=== PATIENT | male | born 1960 | race Caucasian/White ===

== ENCOUNTER 2023-10-22 08:24 | Observation (INO) ==
--- NOTE | 2023-10-07 12:51 | Anesthesiology Consultation ---
Date of Service October 07, 2023 Assessment & Plan (1) Encounter for pre-operative examination: - Per geophysical prospecting surveyor on 10/07/23: No known infectious disease contacts, current infectious disease symptoms in past 10 days or COVID positive test result in the past 30 days. Chart Review Chart Review: Acceptable Risk for Surgery and Patient NOT seen in Pre Admission Testing History Surgery Operation Date: 10/22/23 08:50 Proposed Procedures p Right Total Hip Arthroplasty - Joe Valdez MD Height/Weight Height: 6 ft Weight: 87.997 kg Allergies Allergy/AdvReac Type Severity Reaction Status Date / Time No Known Allergies Allergy Verified 10/07/23 12:03 Medications Home Medications Medication Instructions Recorded Confirmed Last Taken naproxen sodium 220 mg tablet 660 - 880 mg PO QAM PRN Pain 08/16/23 10/07/23 08/28/23 08:00 (Aleve) Wheeled Walker #1 ea 08/20/23 Unknown acetaminophen 500 mg tablet 1,000 mg (2 x 500 mg) PO TID pain 08/27/23 10/07/23 Unknown (Tylenol Extra Strength) 30 days #180 tabs aspirin 81 mg tablet,delayed 81 mg PO BID 45 days #90 tabs 08/27/23 10/07/23 Unknown release (Maritza Low Dose Aspirin) ketorolac 10 mg tablet 10 mg PO Q6 pain 5 days #20 tabs 08/27/23 10/07/23 Unknown ondansetron 4 mg disintegrating 4 mg PO Q8 PRN nausea #20 tabs 08/27/23 10/07/23 Unknown tablet sennosides 8.6 mg tablet (Senokot) 8.6 mg PO BID prevent constipation 08/27/23 10/07/23 Unknown 14 days #28 tabs tamsulosin 0.4 mg capsule (Flomax) 0.4 mg PO DAILY #7 caps 08/27/23 10/07/23 08/28/23 20:00 tramadol 50 mg tablet 50 - 100 mg (1 - 2 x 50 mg) PO Q8H 08/27/23 10/07/23 Unknown PRN pain #40 tabs Wheeled Walker #1 ea 10/07/23 Unknown lisinopril 10 mg tablet 10 mg PO QAM 10/07/23 10/07/23 Unknown Past Medical History Medical History History of COVID-19 spring 2022, home test, not hosp; mild symptoms>resolved Hypertension Lumbar spondylosis Past Surgical History Surgical History History of open reduction and internal fixation (ORIF) procedure right collar bone-hardware placed, then removed 15 years later right wrist-pinning History of total hip arthroplasty left Hx of appendectomy Hx of melanoma excision left back of shoulder S/P hardware removal right collar bone Social History Smoking Status: Former smoker Do You Dip or Chew Tobacco: Yes (advised npo) Smoking End Date: 30 yrs ago Hx Alcohol Use: Yes Alcohol type: beer alcohol intake frequency: 3 or more drinks per day Hx Substance Use: No substance use type: does not use Lab Results Anesthesia Preop Results Results Anesthesia Widget: WBC 17.06 K/ul (4.8-10.8) H 08/30/23 Hgb 11.4 g/dl (14.0-18.0) L 08/30/23 Hct 32.4 % (42.0-52.0) L 08/30/23 Plt 273 K/uL (130-400) 08/30/23 Na 140 mmol/L (136-145) 09/30/23 K 4.1 mmol/L (3.5-5.1) 09/30/23 Cl 105 mmol/L (98-107) 09/30/23 CO2 29 mmol/L (21-32) 09/30/23 BUN 15 mg/dl (6-23) 09/30/23 Creat 0.86 mg/dl (0.6-1.4) 09/30/23 Glucose Level 94 mg/dl (70-99(Fasting)) 09/30/23 PT 10.4 Seconds (9.0-12.0) 09/30/23 PTT 27 Seconds (21-31) 09/30/23 INR 1.0 (0.9-1.1) 09/30/23 Blood Type O Positive 09/30/23 Antibody Screen NEGATIVE 09/30/23 Testing Laboratory Results Labs obtained during hospitalization for left TKA. Electrocardiogram Date: 08/20/23 NSR, rate 61 bpm Chest X-Ray Date: 08/20/23 No acute process.
[~2023-10-22 08:24] MED LIST: MIDAZOLAM HCL 1 MG/ML 2ML VIAL ONE; ROPIVACAINE 0.5% 5 MG/ML 30 ML VIAL ONE; fentaNYL citrate PF 100 MCG/2 ML VIAL ONE
--- NOTE | 2023-10-22 08:36 | History & Physical Bridge Note ---
Date of Service October 22, 2023 History & Physical Bridge Note I have examined the patient, reviewed the History & Physical and in the interval since the performance of the History & Physical I have noted the following changes of clinical significance: no changes noted
[2023-10-22] MEDS: METOCLOPRAMIDE HCL 10 MG TABLET PO SCH (08:56)
[2023-10-22] MEDS: FAMOTIDINE 20 MG TAB PO SCH (08:56)
[2023-10-22] MEDS: ACETAMINOPHEN 500 MG TAB PO SCH ×2 (08:56→16:50)
[2023-10-22] MEDS: CeleBREX 200 MG CAP PO SCH (08:57)
[2023-10-22] MEDS: LR 60ML/HR IV SCH (08:57)
[2023-10-22] MEDS: Scopolamine 1 MG TDSY TD SCH (09:05)
[2023-10-22] MEDS: dexAMETHasone**PF** 10 MG/ML VIAL IV SCH (09:06)
[2023-10-22] MEDS: LR 500ML BOLUS, THEN 15ML/HR IV SCH (09:07)
[2023-10-22] MEDS ORDERED: MoRPHine SULFATE PF 1 MG/ML 10 ML AMP/VIAL ONE (09:45)
[2023-10-22] MEDS ORDERED: BUPIVACAINE 0.5 % 5 MG/1 ML PF 10ML VIAL ONE (09:46)
[2023-10-22] MEDS: TRANEXAMIC ACID 1,000 MG **IV Pre-op IV SCH (09:47)
[2023-10-22] MEDS: ceFAZolin 2000MG 2,000 MG/15 ML SYR IV SCH ×2 (10:08→17:20)
[2023-10-22] MEDS: BUPIVACAINE/EPINEPHRINE 0.5% MPF 1:200,000 30 ML VIAL ONE (10:35)
[2023-10-22] MEDS ORDERED: ePHEDrine sulfate 50 MG/5 ML SYR ONE (10:46)
[2023-10-22] MEDS ORDERED: PHENYLEPHRINE 100MCG/ML 10ML SYR IV ONE (10:46)
[2023-10-22] MEDS ORDERED: LIDOCAINE 2% 2 ML VIAL/AMP(20MG/ML) INFIL ONE (10:46)
[2023-10-22] MEDS ORDERED: PROPOFOL IV EMULSION 10 MG/ML 20 ML VIAL IV ONE (10:46)
[2023-10-22] MEDS ORDERED: PHENYLEPHRINE HCL 10 MG/ML VIAL ONE (11:15)
--- NOTE | 2023-10-22 11:29 | Operative Report ---
PG Post Operative Report Pre & Post Diagnosis Operation Date: 10/22/23 10:40 Pre-Op Diagnosis: Right Hip Advanced Degenerative Joint Disease Post-Op Diagnosis: Right Hip Advanced Degenerative Joint Disease I identified the patient and participated in the time-out.: Yes Procedure Operation Date: 10/22/23 10:40 Actual Procedures p Right Total Hip Arthroplasty--Uncemented(Right) - Joe Valdez MD Surgeon Joe Valdez MD Economics Department Chair Lucio Boston PA-C Estimated Blood Loss 150 Findings Consistent with Post-Op Diagnosis Operative findings reveal advanced right hip DJD. He extensive grade 4 [id number] disease of the femoral head and acetabulum. He had large osteophytes around his femoral head, femoral neck, and acetabulum. Very stiff hip preoperatively. Specimens Right femoral head sent for pathology. Anesthesia Type Spinal MAC Complications none Disposition Accompanied Patient To Recovery: No Indications Patient is a 62-year-old gentleman is had a several year history of bilateral increasing pain discomfort stiffness consequently worse over the past 5 years to the point where he could not work. X-rays show advanced hip arthritis. Failed all conservative measures. He had his left hip replaced about 7 weeks ago and is done remarkably well from this. He elected with right total hip arthroplasty. Description of Procedure Operative implants consist of: 1 Biomet G7 size 56 mm acetabular shell. 2. [place] hole gear inspector. 3. 6.5 cancellous acetabular screws 135 mm length and 125 mm length. 4. Highly cross-linked polyethylene liner with a 56 mm outer diameter, 36 mm inner diam with a ibarra placed inferior and posterior. 5. DePuy Corail size 11 KLA femoral stem. 6. +8.5/36 mm ceramic articular ball. The patient was taken the operating, identified, placed on the operating table in the supine position. All contact areas were appropriately padded. IV antibiotics were provided by the anesthesia team. A spinal anesthetic and been implemented holding area. The patient was then placed in the left lateral decubitus position. An axillary roll was placed. Stulberg hip positioner was used for positioning. The right hip and leg were then prepped and draped in usual sterile fashion. A posterolateral approach to the right hip was then performed to a curvilinear incision centered over the greater trochanter. Sharp dissection Through subcutaneous tissue down to the IT band gluteal fascia. The IT band gluteal fascia incised longitudinally in line with skin incision. The underlying greater bursa was excised. The piriformis and external rotators along with the posterior hip joint capsule were then released from the posterior aspect the hip as a single layer. Great care was taken throughout the procedure protect the sciatic nerve at all times. The hip was then internally rotated and dislocated. A femoral neck osteotomy cut was made with Final Cut about 10 mm above the lesser trochanter. Femoral head was removed and sent for pathology. The femur was retracted anteriorly. Attention drawn the acetabulum. The acetabular labrum was excised. The pulmonary fat was excised. Sequential reaming the acetabular was then performed again with size 43 and progressing up to 55. I reamed a little bit with a 56 reamer. A 56 mm Biomet G7 acetabular shell was then placed in about 40 degrees lateral opening and about 20 degrees of anteversion. It was fixed with two 6.5 cancellous screws. An anterior osteophyte was removed. A trial liner was placed. Attention drawn the femur. The proximal femur was then with a OmniGuide cutter followed by canal finder. I then broached beginning with size 8 and progressed up to 11. Excellent fit 11. This was 1 size larger than we have placed on the opposite side. Then trialed the hip. The neck cut was little bit lower and therefore we elected to use a slightly longer neck/head fragment. We used a +8.5. We did elect to place a ibarra inferior and posterior. The hip was stable to the full extension and external rotation and flexion to 90 degrees internal Tatian about 50 degrees. These implants were placed. All trial implants were removed. An apex hole gear inspector was placed. Highly cross-linked polyethylene liner with a ibarra placed inferior and posterior was then placed. A size 11 KLA femoral stem was impacted in position. I then placed a 8.5/36 mm ceramic articular ball. Once again, I used a longer neck due to the lower neck cut. Hip was located and once again found to be stable. Attention drawn toward closing. The wound was irrigated with pulsatile lavage solution. I did inject locally with 60 cc of half percent Marcaine with epinephrine. The posterior capsule and external rotators were then repaired through drill holes in the posterior trochanter with #2 Tycron suture. The IT band gluteal fascia then closed with #1 PDS suture in running fashion through subcutaneous tissue then closed with 2 layers of the deep layer #1 Vicryl suture in the subcutaneous tissues with 2-0 Dexon suture in a buried interrupted fashion. Skin was closed with skin elisabet. Leg was then cleaned and dried and a sterile dressing with Xeroform, 4 fours, ABD pad and foam tape was applied. The patient then transferred to the recovery room in stable condition. The patient tolerated the procedure well and there were no complications. Lucio Boston, my physician executive assistant to general counsel, was present for the entire procedure. His assistance was essential and required for appropriate patient positioning, prepping and draping, surgical exposure, performing the technical details of the operation, placement the implants, closure of the wound, and placement of the sterile bandage. I attest to the content of the Intraoperative Record and any orders documented therein. Any exceptions are noted below.
--- NOTE | 2023-10-22 12:43 | XRay Report ---
XR hip 1V RT w pelvis CLINICAL HISTORY: IN PACU - Post Surgical TECHNIQUE: 1 view of the right hip and single frontal view of the pelvis were obtained. Comparison: Comparison is made to hip radiographs 08/29/2023 FINDINGS: Patient is status post total hip arthroplasty with expected postsurgical changes including soft tissu e swelling and subcutaneous emphysema. Left hip arthroplasty is unchanged. IMPRESSION: Expected postoperative appearance status post placement of total hip arthroplasty. ACT 112: Negative or not required by law. Electronically signed by: Salomón Dickerson M.D. 10/22/2023 12:41 PM
[2023-10-22] MEDS ORDERED: MAGNESIUM HYDROXIDE SUSP 30 ML UDC PO PRN (13:24)
[2023-10-22] MEDS ORDERED: HYDROmorphone INJ 0.5 MG/0.5 ML SYR IV PRN (13:24)
[2023-10-22] MEDS ORDERED: traMADol HCL 50 MG TABLET PO PRN ×2 (13:24)
[2023-10-22] MEDS ORDERED: ALUMINUM/MAGNESIUM SUSP 30 ML UDC PO PRN (13:24)
[2023-10-22] MEDS ORDERED: diphenhydrAMINE Capsule 25 MG CAP PO PRN (13:24)
[2023-10-22] MEDS ORDERED: bisacodyL 10 MG SUPP PR PRN (13:24)
[2023-10-22] MEDS ORDERED: METOCLOPRAMIDE HCL INJ 5 MG/ML 2 ML VIAL IV PRN (13:24)
[2023-10-22] MEDS ORDERED: ONDANSETRON INJ 2 MG/ML 2 ML VIAL IV PRN (13:24)
--- NOTE | 2023-10-22 13:26 | Anesthesiology Progress Note ---
Date of Service October 22, 2023 Anesthesia Post Procedure Vital Signs Vital Signs: Temp Pulse Pulse Resp BP Pulse Ox O2 Del Method 10/22/23 12:55 60 15 102/62 99 Nasal Cannula 10/22/23 12:45 57 L 15 102/61 99 Nasal Cannula 10/22/23 12:35 59 L 16 105/57 L 99 Nasal Cannula 10/22/23 12:25 36.5 C 59 L 17 102/56 L 99 Nasal Cannula 10/22/23 12:15 62 20 104/59 L 98 Nasal Cannula 10/22/23 12:05 66 16 109/63 97 Room Air 10/22/23 11:55 64 17 107/58 L 99 Room Air 10/22/23 11:45 73 18 107/58 L 99 Room Air 10/22/23 11:35 76 15 107/56 L 99 Oxymask 10/22/23 11:25 36.0 C L 75 17 114/57 L 100 Oxymask 10/22/23 08:46 36.7 C 76 20 134/93 96 Room Air O2 Flow Rate 10/22/23 12:55 2 10/22/23 12:45 2 10/22/23 12:35 2 10/22/23 12:25 2 10/22/23 12:15 2 10/22/23 12:05 10/22/23 11:55 10/22/23 11:45 10/22/23 11:35 5 10/22/23 11:25 10 10/22/23 08:46 Transfer of Care Handoff Completed per policy Notes Mental Status: alert / awake / arousable Patient Amnestic to Procedure: Yes Nausea / Vomiting: adequately controlled Pain: adequately controlled Airway Patency, RR, SpO2: stable & adequate BP & HR: stable & adequate Hydration State: stable & adequate Neuraxial Anesthesia: was administered and sensory block is resolving Anesthetic Complications: no major complications apparent
[2023-10-22] MEDS ORDERED: ePHEDrine sulfate 50 MG/ML AMP IV PRN (13:43)
[2023-10-22] MEDS ORDERED: NALOXONE HCL 0.08 MG in SYRINGE 1.8 ML IV PRN (13:43)
[2023-10-22] MEDS ORDERED: NALOXONE HCL 0.4 MG/1 ML VIAL/CARP IV PRN (13:43)
[2023-10-22] MEDS ORDERED: PROMETHAZINE HCL 6.25 MG in SODIUM CHLORIDE 0.9% 50 ML IV PRN (13:43)
[2023-10-22] MEDS ORDERED: MoRPHine SULFATE 2 MG/ML CARP IV PRN (13:43)
[2023-10-22] MEDS ORDERED: NALOXONE HCL 1 MG in SODIUM CHLORIDE 0.9% 1,000 ML IV PRN (13:43)
[2023-10-22] MEDS ORDERED: LACTATED RINGER'S 500 ML IV PRN (13:43)
[2023-10-22] MEDS ORDERED: KETOROLAC 30 MG/ML VIAL IV PRN (13:43)
[2023-10-22] MEDS ORDERED: DC INTRASPINAL MORPHINE SCH (13:45)
[2023-10-22] MEDS ORDERED: NO NARCOTICS OR SEDATIVES SCH (13:45)
[2023-10-22] MEDS ORDERED: ACETAMINOPHEN 500 MG TAB PO SCH (14:00)
[2023-10-22] MEDS: SODIUM CHLORIDE 0.9% 1,000 ML IV SCH ×2 (14:18→16:30)
[2023-10-22] MEDS: ONDANSETRON INJ 2 MG/ML 2 ML VIAL IV PRN (14:39)
[2023-10-22] MEDS: diphenhydrAMINE 50 MG/ML VIAL IV PRN (14:45)
[2023-10-22] MEDS: NALOXONE HCL 0.4 MG/1 ML VIAL/CARP IV PRN (14:52)
[2023-10-22] MEDS: NALBUPHINE HCL 5 MG in SYRINGE 0 ML IV PRN (15:46)
--- NOTE | 2023-10-22 15:49 | Communication Note ---
Date of Service: October 22, 2023 Alerted by nursing of patient requiring narcan d/t diaphoresis post intrathecal morphine from surgery early today. Assessed patient at bedside with nursing. Patient appears calm and comfortable. Patient states he feels much better now and immediately after 2nd dose of narcan. States he suddenly felt extremely itchy/nauseous and sweaty with some vertigo. EKG obtained shows NSR first degree AV block. Given history, suspect vagal response to nausea contributing to lower HR. BP, O2 saturation stable throughout. Patient denying any CP/SOB. Instructed patient this is potential side effect with 2nd peak effect of spinal morphine. Continue continuous pulse oximeter monitoring and PRN narcan for significant opioid side effects.
[2023-10-22] MEDS: Scopolamine CHECK PATCH PLACEMENT SCH (15:52)
--- NOTE | 2023-10-22 16:03 | Hospitalist Consultation ---
Date of Consultation October 22, 2023 Assessment & Plan (1) Status post left hip replacement: Status post right total hip arthroplasty 10/22/[address] Valdez (2) Bradycardia: Postoperative symptomatic bradycardia with sustained blood pressure. nursing states that he was stable when he returned from PACU but then developed some bradycardia nausea diaphoresis and pruritus. The pruritus seems to be at the level of his spinal anesthesia. Patient did receive 3 doses of 0.1 mg of Narcan with improvement of his mental state and heart rate. Patient had some pruritus as mentioned which could be his anesthesia wearing off could have created pain sensation with created a vagal sensation resulting in the bradycardia. However there have been reports of morphine causing bradycardia in the literature. At this time the patient seems stable his heart rates in the 60s his blood pressure was sustained his examination was nonfocal will have the patient remain on the medical floor with close monitoring and if this were to occur or if he were to regress will transfer to PCU but will remain on the medical floor at this time. Checking serology at this time. Likely medication related or vagal related effect (3) Hypertension: Holding lisinopril postoperatively Plan Patient ordered tamsulosin for BPH will continue as patient's blood pressure prohibits at Surgery was chosen twice daily aspirin for DVT prevention History of Present Illness Attending Physician: Joe Valdez MD History of Present Illness Patient presents after total right hip arthroplasty. Patient underwent left hip arthroplasty in August 2023 Postoperatively patient developed sinus bradycardia. He did have some diaphoresis. He did have a spinal during his procedure. He typically does not take any beta-marni therapy., EKG revealed sinus bradycardia with first-degree AV block. Blood pressure revealed 121/70 Allergies Allergy/AdvReac Type Severity Reaction Status Date / Time No Known Allergies Allergy Verified 10/22/23 08:51 Home Medications Medication Instructions Recorded Confirmed Type naproxen sodium 220 mg tablet 660 - 880 mg PO QAM PRN Pain 08/16/23 10/22/23 History (Jane) Wheeled Walker #1 ea 08/20/23 Rx acetaminophen 500 mg tablet 1,000 mg (2 x 500 mg) PO TID pain 08/27/23 10/22/23 Rx (Tylenol Extra Strength) 30 days #180 tabs aspirin 81 mg tablet,delayed 81 mg PO BID 45 days #90 tabs 08/27/23 10/22/23 Rx release (Maritza Low Dose Aspirin) ketorolac 10 mg tablet 10 mg PO Q6 pain 5 days #20 tabs 08/27/23 10/22/23 Rx ondansetron 4 mg disintegrating 4 mg PO Q8 PRN nausea #20 tabs 08/27/23 10/22/23 Rx tablet sennosides 8.6 mg tablet (Senokot) 8.6 mg PO BID prevent constipation 08/27/23 10/22/23 Rx 14 days #28 tabs tamsulosin 0.4 mg capsule (Flomax) 0.4 mg PO DAILY #7 caps 08/27/23 10/22/23 Rx tramadol 50 mg tablet 50 - 100 mg (1 - 2 x 50 mg) PO Q8H 08/27/23 10/22/23 Rx PRN pain #40 tabs Wheeled Walker #1 ea 10/07/23 Rx lisinopril 10 mg tablet 10 mg PO QAM 10/07/23 10/22/23 History acetaminophen 500 mg tablet 1,000 mg (2 x 500 mg) PO TID pain 10/20/23 10/22/23 Rx (Tylenol Extra Strength) 30 days #180 tabs aspirin 81 mg tablet,delayed 81 mg PO BID 45 days #90 tabs 10/20/23 10/22/23 Rx release (Maritza Low Dose Aspirin) ketorolac 10 mg tablet 10 mg PO Q6 pain 5 days #20 tabs 10/20/23 10/22/23 Rx ondansetron 4 mg disintegrating 4 mg PO Q8 PRN nausea #20 tabs 10/20/23 10/22/23 Rx tablet sennosides 8.6 mg tablet (Senokot) 8.6 mg PO BID prevent constipation 10/20/23 10/22/23 Rx 14 days #28 tabs tamsulosin 0.4 mg capsule (Flomax) 0.4 mg PO DAILY #7 caps 10/20/23 10/22/23 Rx tramadol 50 mg tablet 50 - 100 mg (1 - 2 x 50 mg) PO Q8H 10/20/23 10/22/23 Rx PRN pain #40 tabs Patient History Medical History History of COVID-19 spring 2022, home test, not hosp; mild symptoms>resolved Hypertension Lumbar spondylosis Surgical History History of open reduction and internal fixation (ORIF) procedure right collar bone-hardware placed, then removed 15 years later right wrist-pinning History of total hip arthroplasty left Hx of appendectomy Hx of melanoma excision left back of shoulder S/P hardware removal right collar bone Social History Smoking Status: Former smoker Tobacco Type: Smokeless Tobacco (Dip or Chew) Smoking End Date: 30 yrs ago; Second Hand Exposure: No; Do You Dip or Chew Tobacco: Yes (advised npo); Tobacco Cessation Education Requested by Patient: No Hx Alcohol Use: Yes Alcohol type: beer Hx Substance Use: No Preferred Language: [place] Communication Ability: Effective Grinding Wheel Operator Required: No Beliefs That Will Affect Care: None Current Living Situation: Spouse Other Information That Helps Us Care for You: No Feels Safe at Home: Yes Safety Concerns: Feels Safe At This Time Assistive Devices: Cane, Raised Toilet Seat and Walker Physical Exam Physical Exam: The patient appeared well nourished and normally developed. Vital signs as documented. Head exam is normocephalic atraumatic Neck is without JVD, thyromegaly, or carotid bruits. Lungs are clear to auscultation, no focal loss of breath sounds Cardiac exam, Rhythm is regular. HR was 60-63 while I examined him. No murmurs, rubs or gallops. Abdominal exam reveals normal bowel sounds, soft non tender, no masses Extremities are nonedematous and both pedal pulses are present Neurologic exam is alert and oriented Psychologically is without concerns for anxiety or depression.. Results & Data Results & Data Vital Signs (Past 12 Hours) Vital Signs Temp Pulse Pulse Pulse Resp BP Pulse Ox 10/22/23 15:51 52 L 20 97 10/22/23 15:36 94.6 F L 10/22/23 15:29 53 L 23 97 10/22/23 15:22 7 L 10/22/23 14:59 94.3 F L 57 L 18 121/71 97 10/22/23 14:54 119/76 10/22/23 14:52 8 L 10/22/23 14:32 117/69 10/22/23 14:07 97.3 F L 48 L 21 124/69 96 10/22/23 14:00 10/22/23 13:58 97.3 F L 10/22/23 13:41 57 L 17 110/64 94 10/22/23 13:10 97.5 F L 62 16 106/63 97 10/22/23 12:55 60 15 102/62 99 10/22/23 12:45 57 L 15 102/61 99 10/22/23 12:35 59 L 16 105/57 L 99 10/22/23 12:25 97.7 F 59 L 17 102/56 L 99 10/22/23 12:15 62 20 104/59 L 98 10/22/23 12:05 66 16 109/63 97 10/22/23 11:55 64 17 107/58 L 99 10/22/23 11:45 73 18 107/58 L 99 10/22/23 11:35 76 15 107/56 L 99 10/22/23 11:25 96.8 F L 75 17 114/57 L 100 10/22/23 08:46 98.1 F 76 20 134/93 96 O2 Del Method O2 Del Method O2 Flow Rate 10/22/23 15:51 Room Air 10/22/23 15:36 10/22/23 15:29 Room Air 10/22/23 15:22 10/22/23 14:59 Room Air 10/22/23 14:54 10/22/23 14:52 10/22/23 14:32 10/22/23 14:07 Room Air 10/22/23 14:00 Room Air 10/22/23 13:58 10/22/23 13:41 Room Air 10/22/23 13:10 Nasal Cannula 2 10/22/23 12:55 Nasal Cannula 2 10/22/23 12:45 Nasal Cannula 2 10/22/23 12:35 Nasal Cannula 2 10/22/23 12:25 Nasal Cannula 2 10/22/23 12:15 Nasal Cannula 2 10/22/23 12:05 Room Air 10/22/23 11:55 Room Air 10/22/23 11:45 Room Air 10/22/23 11:35 Oxymask 5 10/22/23 11:25 Oxymask 10 10/22/23 08:46 Room Air Laboratory Results Ordered CBC chemistry magnesium TSH and Lyme PG Care Time/CCT Total # of Minutes Spent Total Time Spent with Patient: Total time spent is greater than 50% in coordination of care (as documented) at patient's floor/unit and/or counseling patient: Coding Level of Care Code 13254 IN/OBS CONSULT LVL 3,45M Diagnoses Status post left hip replacement Z96.642 Bradycardia R00.1 Hypertension I10
[2023-10-22] MEDS: MoRPHine SULFATE PF 1 MG/ML 10 ML AMP/VIAL INT SPINAL ONE (16:29)
[2023-10-22] MEDS: ASCORBIC ACID 500 MG TAB PO SCH (16:51)
[2023-10-22 16:59] LABS: Hematocrit (blood only) 35.9 % (42.0-52.0); Hemoglobin 12.1 g/dl (14.0-18.0); Mean Corpuscular Hemoglobin 32.2 pg (25.0-34.0); Mean Corpuscular Hgb Conc 33.7 g/dL (32.0-36.0); Mean Corpuscular Volume 95.5 fL (80.0-100.0); Mean Platelet Volume 9.3 fL (9.4-12.4); Platelet Count 279 K/uL (130-400); RDW Coefficient of Variation 12.2 % (11.5-14.5); RDW Standard Deviation 42.6 fL (36.4-46.3); Red Blood Count 3.76 M/uL (4.70-6.10); White Blood Count 12.95 K/ul (4.8-10.8)
[2023-10-22 17:09] LABS: BUN Creatinine Ratio 14.8 (10-20); Creatinine Clr Calc Pharmacy 99.8 ml/min; Est GFR (African American) 108.1 ml/min; Est GFR (Non-African American) 93.3 ml/min; Magnesium 1.9 mg/dl (1.7-2.4); Potassium 4.2 mmol/L (3.5-5.1)
[2023-10-22] MEDS: TRANEXAMIC ACID / 0.7% NACL 1,000 MG/100 ML BAG IV SCH (17:20)
[2023-10-22 17:23] LABS: Thyroid Stimulating Hormone 0.521 uIu/ml (0.300-4.500)
[2023-10-22] MEDS ORDERED: KETOROLAC 30 MG/ML VIAL IV SCH (18:00)
[2023-10-22] MEDS ORDERED: SENNA 8.6 MG TAB PO SCH ×2 (21:00)
[2023-10-22] MEDS ORDERED: ASPIRIN 81 MG ECTAB PO SCH (21:00)
[2023-10-22] MEDS: SENNA 8.6 MG TAB PO SCH (21:57)
[2023-10-22] MEDS: DOCUSATE SODIUM 100 MG CAP PO SCH (21:57)
[2023-10-22] MEDS: ASPIRIN 81 MG ECTAB PO SCH (21:57)
--- NOTE | 2023-10-23 07:18 | Orthopedic Progress Note ---
Date of Service October 23, 2023 Assessment & Plan (1) Status post total hip replacement, right: Pain controlled. He seems to be doing well today. Had this response yesterday post op felt to be related to the spinal/vagal episode. d/c planning: home with home health today if he continues to do well with PT PT/OT: wbat, hip precautions dvt prophylaxis: teds, scds, aspirin Will discuss with Dr. José Miguel Chaves .63 year old patient POD #1 from right savanna. Doing okay. Pain controlled. Has been up and walked some. Hospitalist consulted for bradycardia/diaphoresis yesterday, felt to be vagal episode. Denies any further episodes like this. He said he was slightly lightheaded when he got up. No chest pain or shortness of breath. Slight pruritus. Review of Systems All systems reviewed & are unremarkable except as noted in HPI & below. Physical Exam .alert and oriented. NAD. VSS Right hip: Dressing clean, dry, intact. Hip located. Able to dorsiflex and plantarflex. NVI Results & Data Results & Data Laboratory Results . Diagnostic Findings . PG Care Time/CCT Total # of Minutes Spent Total Time Spent with Patient: Total time spent is greater than 50% in coordination of care (as documented) at patient's floor/unit and/or counseling patient: Coding Level of Care Code 08721 Post Operative Follow-Up Diagnoses Status post total hip replacement, right Z96.641
[2023-10-23] MEDS: TAMSULOSIN HCL 0.4 MG CAP PO SCH (08:04)
[2023-10-23] MEDS: MULTIVITAMIN TAB PO SCH (08:04)
[2023-10-23] MEDS: dexAMETHasone 10 MG in SYRINGE 0 ML IV SCH (08:05)
[2023-10-23 08:21] LABS: Basophils # (auto) 0.01 K/uL (0.00-0.20); Basophils % (auto) 0.1 %; Hematocrit (blood only) 34.1 % (42.0-52.0); Hemoglobin 11.2 g/dl (14.0-18.0); Immature Granulocytes # (auto) 0.08 K/uL (0.01-0.20); Immature Granulocytes % (auto) 0.6 %; Lymphocytes # (auto) 0.93 K/uL (1.20-3.40); Lymphocytes % (auto) 6.8 %; Mean Corpuscular Hgb Conc 32.8 g/dL (32.0-36.0); Mean Corpuscular Volume 97.4 fL (80.0-100.0); Mean Platelet Volume 9.2 fL (9.4-12.4); Monocytes # (auto) 1.15 K/uL (0.11-0.59); Monocytes % (auto) 8.4 %; Neutrophils # (auto) 11.54 K/uL (1.40-6.50); Neutrophils % (auto) 84.1 %; Platelet Count 304 K/uL (130-400); RDW Coefficient of Variation 12.3 % (11.5-14.5); RDW Standard Deviation 44.1 fL (36.4-46.3); White Blood Count 13.71 K/ul (4.8-10.8)
[2023-10-23 08:38] LABS: Calcium 8.1 mg/dl (8.6-10.3); Creatinine Clr Calc Pharmacy 76.3 ml/min; Est GFR (African American) 84.9 ml/min; Est GFR (Non-African American) 73.3 ml/min; Potassium 4.4 mmol/L (3.5-5.1)
[2023-10-23] MEDS ORDERED: TAMSULOSIN HCL 0.4 MG CAP PO SCH (09:00)
[2023-10-23] MEDS ORDERED: lisinopril 10 MG TAB PO SCH (09:00)
--- NOTE | 2023-10-23 11:04 | Electrocardiogram Report ---
Test Reason : Blood Pressure : / mmHG Vent. Rate : 046 BPM Atrial Rate : 046 BPM P-R Int : 220 ms QRS Dur : 098 ms QT Int : 490 ms P-R-T Axes : 034 032 038 degrees QTc Int : 428 ms Sinus bradycardia with 1st degree A-V block Otherwise normal ECG When compared with ECG of 20-AUG-2023 12:19, TN interval has increased Confirmed by Farhad Chong ([id number]) on 10/23/2023 11:04:04 AM Referred By: Joe Valdez Confirmed By:Farhad Chong
[2023-10-23] MEDS: KETOROLAC 30 MG/ML VIAL IV SCH (11:11)
--- NOTE | 2023-10-23 11:54 | Communication Note ---
Date of Service: October 23, 2023 I spoke to the patient regarding the incident from yesterday. He stated he had pruritus yesterday. After receiving a dose of benadryl, he became diaphoretic and bradycardic. The patient received naloxone, and he stated feeling better. Today, he was doing well with no issues and he was getting ready to be discharged. The patient was satisfied with his care and did not offer any complaints.
--- NOTE | 2023-10-23 14:45 | Hospitalist Progress Note ---
Date of Service October 23, 2023 Assessment & Plan (1) Status post left hip replacement: Plan: Status post right total hip arthroplasty 10/22/[address] Valdez (2) Bradycardia: Plan: Postoperative symptomatic bradycardia with sustained blood pressure. nursing states that he was stable when he returned from PACU but then developed some bradycardia nausea diaphoresis and pruritus. The pruritus seems to be at the level of his spinal anesthesia. Patient did receive 3 doses of 0.1 mg of Narcan with improvement of his mental state and heart rate. no abnormal labs noted, except for mild anemia lyme negative (3) Hypertension: Plan: resume lisinopril Plan Surgery was chosen twice daily aspirin for DVT prevention Admission and Anticipated Discharge Date Admission Date: October 22, 2023 Subjective pt is doing well, no recurrence of symptoms Physical Exam Physical Exam: awake and alert, cardiac is slow but regular lungs are clear Results & Data Results & Data Vital Signs (Past 12 Hours) Vital Signs Temp Pulse Pulse Resp BP Pulse Ox Pulse Ox 10/23/23 10:33 96 10/23/23 07:56 98.1 F 60 19 126/73 95 10/23/23 07:15 18 96 10/23/23 06:02 16 93 10/23/23 04:59 13 95 10/23/23 04:03 14 94 10/23/23 03:00 16 95 10/23/23 03:00 97.9 F 69 16 112/71 95 O2 Del Method 10/23/23 10:33 10/23/23 07:56 Room Air 10/23/23 07:15 10/23/23 06:02 10/23/23 04:59 10/23/23 04:03 10/23/23 03:00 10/23/23 03:00 Room Air PG Care Time/CCT Total # of Minutes Spent Total Time Spent with Patient: Total time spent is greater than 50% in coordination of care (as documented) at patient's floor/unit and/or counseling patient: Coding Level of Care Code 49289 SUB INP/OBS CARE 25MIN Diagnoses Status post left hip replacement Z96.642 Bradycardia R00.1 Hypertension I10
== END 2023-10-23 12:11 | disposition home health service (06) ==
LOC: 3E 08:24 → ASU 08:24